=== PATIENT | female | born 1945 | race African-American/Black ===

== ENCOUNTER 2016-08-10 13:42 | Emergency (ER) | payer OTHER ==
[2016-08-10 13:51] VITALS: BP 110/69; TEMP 98.1; BMI 32.3
--- NOTE | 2016-08-10 13:57 | ED.PDOC ---
General ED Provider: Dr. LINDA RAMIREZ JR Chief Complaint: Ankle Pain/Injury Stated Complaint: walking on uneven surface and ankle went over to keep from falling--now has constant pain to lateral aspect rt ankle--unable to bear weight. [ End ]10:30 98.1 78 20 96% 110/69 01/10 Time Seen by Physician: 13:57 Mode of Arrival: Wheelchair Information Source: Patient Exam Limitations: No limitations Nursing and Triage Documentation Reviewed and Agree: No Review of Systems - Review Of Systems Constitutional: Reports: No symptoms Eyes: Reports: No symptoms Ears, Nose, Mouth, Throat: Reports: No symptoms Respiratory: Reports: No symptoms Cardiac: Reports: No symptoms GI: Reports: No symptoms : Reports: No symptoms Musculoskeletal: Reports: Joint pain (right foot right hip(knee nontender )) Skin: Reports: No symptoms Neurological: Reports: No symptoms Endocrine: Reports: No symptoms Hematologic/Lymphatic: Reports: No symptoms All Other Systems: Other Past Medical History - Past Medical History Previously Healthy: No Endocrine: Reports: Hypothyroid, Hyperthyroid, Dyslipidemia Cardiovascular: Reports: CAD, Hypertension Respiratory: Reports: None Hematological: Reports: None Gastrointestinal: Reports: None Genitourinary: Reports: None Neuro/Psych: Reports: TIA, Migraine Musculoskeletal: Reports: Arthritis Cancer: Reports: Breast (right), Other (BLADDER-finished chemo 2017) Last Menstrual Period: hysterectomy - Surgical History General Surgical History: Reports: Hysterectomy, Appendectomy, Orthopedic (arm ) , Back Surgery, Other (thyroidectomy) - Family History Family History: Reports: None - Social History Smoking Status: Current every day smoker, Light tobacco smoker Hx Substance Use: No Alcohol Screening: None Physical Exam - Physical Exam Appearance: Well-appearing Pain Distress: Moderate Eyes: HARI, EOMI, Conjunctiva clear ENT: Ears normal, Nose normal, Oropharynx normal Neck: Supple Respiratory: Airway patent, Breath sounds clear, Breath sounds equal, Respirations nonlabored Cardiovascular: RRR, Pulses normal, No rub, No murmur GI/: Soft, Nontender, No masses, Bowel sounds normal, No Organomegaly Musculoskeletal: Normal strength, ROM intact, No edema, No calf tenderness ( tender righ tfoot an d right hip) Skin: Warm, Dry, Normal color Neurological: Sensation intact, Motor intact, Reflexes intact, Cranial nerves intact, Alert, Oriented Critical Care Note - Critical Care Note Total Time (mins): 0 Course - Course Orders, Labs, Meds: Orders Category Date Time Status ALBER [ED ALBER WRAP] .ONCE EMERGENCY 08/10/16 15:52 Active ED CRUTCHES .ONCE EMERGENCY 08/10/16 15:52 Active FOOT, RIGHT 3 VIEWS Stat RADS 08/10/16 14:02 Completed PELVIS & GEOVANNY HIPS Stat RADS 08/10/16 14:30 Completed Vital Signs: Temp Pulse Resp BP Pulse Ox 08/10/16 13:43 98.1 F 78 20 110/69 96 Departure - Departure Time of Disposition: 15:52 Disposition: HOME SELF-CARE Discharge Problem: Foot sprain, Hip strain Instructions: Foot Sprain (ED), Hip Sprain (ED) Condition: Good Pt referred to PMD for follow-up: Yes Additional Instructions: limit weigh t for three days recheck pmd one week if pain not resolved iced 20 minutes three times a day alber wrap for comfort elevate foot 2 hours twice a day light exercise after 3-6 weeks recheck if pain not resolved Prescriptions: Hydrocodone Bit/Acetaminophen [[place] 5-325] 1 - 2 tab PO Q6HR PRN #12 tablet PRN Reason: pain Allergies/Adverse Reactions: Allergies amoxicillin [From Augmentin] Adverse Reaction (Verified 08/10/16 13:54) clavulanic acid [From Augmentin] Adverse Reaction (Verified 08/10/16 13:54) clindamycin Adverse Reaction (Verified 12/26/14 10:30) Rash doxycycline Adverse Reaction (Verified 08/10/16 13:54) latex Adverse Reaction (Verified 12/26/14 10:30) Rash levofloxacin [From Levaquin] Adverse Reaction (Verified 12/26/14 10:30) [place]-Saurabh Syndrome Penicillins Adverse Reaction (Verified 12/26/14 10:30) Swelling Sulfa (Sulfonamide Antibiotics) Adverse Reaction (Verified 12/26/14 10:30) Rash tetanus immune globulin Adverse Reaction (Verified 12/26/14 10:30) Swelling tetracycline Adverse Reaction (Verified 08/10/16 13:54) Home Medications: Ambulatory Orders Ascorbic Acid [Vitamin C] 500 mg PO DAILY 09/27/12 Calcium Carbonate/Vitamin D3 [Calcium 600 + Vit D 200 Tablet] 1 each PO DAILY Aspirin [Aspirin EC] 81 mg PO DAILYWM 02/10/14 Multivitamin 1 cap PO DAILY 02/10/14 [place]-3S/Dha/Epa/Fish Oil [Fish Oil EC 1,200 mg Softgel] 1 each PO DAILY Levothyroxine Sodium 112 mcg PO DAILY 12/17/15 Promethazine HCl 25 mg PO DIRECTED PRN 06/15/16 Hydrocodone Bit/Acetaminophen [[place] 5-325] 1 - 2 tab PO Q6HR PRN #12 tablet 01/17
--- NOTE | 2016-08-10 14:24 | DI ---
EXAM: Radiographs, right foot HISTORY: Initial presentation for right foot trauma. COMPARISON: None available. TECHNIQUE: Three views. FINDINGS: Bone mineralization is decreased. There is no fracture or dislocation. The joint spaces are maintained. No focal soft tissue abnormality is seen. IMPRESSION: No fracture or dislocation.
--- NOTE | 2016-08-10 15:43 | DI ---
EXAM: Single view of the pelvis and both hips HISTORY: Fall with right hip pain. COMPARISON: CT abdomen pelvis 06/14/2014 FINDINGS: The pelvic ring is intact. The sacroiliac joints and pubic symphysis are normal. There is degenerative change and narrowing with osteophyte formation of the bilateral hip joint spaces. The re is no lytic or blastic lesion. Soft tissues are unremarkable. IMPRESSION: Degenerative disease of the hips with no cortical irregularity or displaced fracture id entified.
== END 2016-08-10 16:14 | disposition home or self-care (01) ==
LOC: ED 13:42
DX: S93.601A Unspecified sprain of right foot, initial encounter (principal); S76.011A Strain of muscle, fascia and tendon of right hip, initial encounter; W01.0XXA Fall on same level from slipping, tripping and stumbling without subsequent striking against object, initial encounter; F17.210 Nicotine dependence, cigarettes, uncomplicated
CPT/HCPCS: 99283

== ENCOUNTER 2016-12-15 10:32 | Outpatient (CLI) ==
[2012-09-27 08:41] VITALS: TEMP 96.8
[2016-12-15 11:09] LABS: BASOPHILS # (AUTO) 0.1 K/uL (0-0.2); BASOPHILS % (AUTO) 0.6 % (0.0-3.0); EOSINOPHILS # (AUTO) 0.1 K/ul (0.0-0.7); EOSINOPHILS % (AUTO) 1.4 % (0.0-7.0); HEMATOCRIT 38.4 % (37.0-47.0); HEMOGLOBIN 13.3 g/dl (12.0-16.0); IMMATURE GRANULOCYTE % (AUTO) 0.4 % (0.0-5.0); LYMPHOCYTES # (AUTO) 3.2 K/uL (0.60-3.4); LYMPHOCYTES % (AUTO) 39.2 (10.0-50.0); MEAN CORPUSCULAR HEMOGLOBIN 33.2 pg (27.0-31.0); MEAN CORPUSCULAR HGB CONC 34.6 (31.8-35.4); MEAN CORPUSCULAR VOLUME 95.8 fl (81.0-99.0); MONOCYTES # (AUTO) 0.6 K/uL (0.4-2.0); MONOCYTES % (AUTO) 7.6 (0-10); NEUTROPHILS # (AUTO) 4.1 K/ul (2.0-6.9); NEUTROPHILS % (AUTO) 50.8; PLATELET COUNT 188 10^3/uL (140-440); RED BLOOD COUNT 4.01 10^6/ul (4.20-5.40); WHITE BLOOD COUNT 8.07 K/ul (4.6-10.2)
[2016-12-15 11:42] LABS: ALBUMIN 3.2 g/dL (3.4-5.0); ANION GAP 12.5; BILIRUBIN,TOTAL 0.25 mg/dL (0.00-1.20); BUN/CREATININE RATIO 17.33; CALCIUM 9.5 mg/dL (8.2-10.2); CREATININE 0.75 mg/dL (0.60-1.30); POTASSIUM 3.5 mmol/L (3.5-5.10); TOTAL PROTEIN 6.4 g/dL (5.8-8.1)
== END 2016-12-15 10:33 | disposition home or self-care (01) ==
LOC: LAB 10:32
PROVIDERS: ATTEND Emergency Medicine
DX: E03.9 Hypothyroidism, unspecified (principal); I10 Essential (primary) hypertension; C67.9 Malignant neoplasm of bladder, unspecified
CPT/HCPCS: 36415; 80053; 83690; 84443; 85025

== ENCOUNTER 2016-12-27 08:54 | Outpatient (CLI) ==
[2012-09-27 08:41] VITALS: TEMP 96.8
== END 2016-12-27 08:55 | disposition home or self-care (01) ==
LOC: CAR 08:54
PROVIDERS: ATTEND Nurse Practitioner Family
DX: Z01.810 Encounter for preprocedural cardiovascular examination (principal)
CPT/HCPCS: 93005; 93010

== ENCOUNTER 2017-01-09 07:14 | Day surgery (SDC) | payer OTHER ==
[2017-01-09] MEDS: KETOROLAC 0.5% OPTH SOL OP PRN ×3 (08:15→08:45)
[2017-01-09] MEDS: TETRACAINE 0.5% UNIT-DOSE OP PRN ×3 (08:15→08:45)
[2017-01-09] MEDS: AK-DILATE 10% OPTH SOL OP PRN ×3 (08:15→08:25)
[2017-01-09] MEDS: CYCLOGYL 2% OPTH OP PRN ×3 (08:15→08:25)
[2017-01-09] MEDS ORDERED: LIDOCAINE 1% 20 ML MDV ID ONE (08:20)
[2017-01-09] MEDS ORDERED: VERSED ONE (09:45)
[2017-01-09] MEDS ORDERED: BETADINE OPTH PREP OP ONE (09:55)
[2017-01-09] MEDS ORDERED: OCUFLOX 0.3% OPTH SOL OP ONE ×2 (10:21)
[2017-01-09] MEDS ORDERED: TIMOPTIC 0.5% OPTH OP ONE ×2 (10:21)
[2017-01-09] MEDS ORDERED: PRED FORTE 1% OPTH SOL OP ONE ×2 (10:21)
[2017-01-09] MEDS ORDERED: VOLTAREN 0.1% OPTH SOL OP ONE ×2 (10:21)
[2017-01-09] MEDS ORDERED: DIAMOX PO ONE (11:33)
[2017-01-09 11:38] VITALS: BP 149/79; TEMP 98
--- NOTE | 2017-01-10 07:12 | OP ---
PREOPERATIVE DIAGNOSIS: LEFT EYE. POSTOPERATIVE DIAGNOSIS: SAME. OPERATION PHACOEMULSIFICATION ASPIRATION OF CATARACT LEFT EYE. PLACEMENT OF POSTERIOR CHAMBER LENS. PHACO TIME 47.9 SECONDS AT 9.0% POWER. LENS MODEL TECLEONID [id number]. DIOPTER +22.0D. TECHNIQUE: CLEAR CORNEA. ANESTHESIA: TOPICAL ANESTHESIA W/ANESTHESIA MONITORING. OPERATIVE REPORT: Topical anesthesia consisting of Tetracaine was applied to the cornea and Xylocaine Methyl Paraben free of MFP was injected intracamerally into the anterior chamber. The patient was then brought into the operating room , prepped and draped in the usual ophthalmic manner. A lid speculum was placed and the operating microscope was used. A paracentesis was made at the 3 o' clock position. A clear corneal incision was made just out to the limbus. The anterior chamber was entered just inside the clear cornea. Viscoelastic was injected into the anterior chamber. A capsulotomy was performed with a bent # 27 gauge needle. Phacoemulsification was then performed in the posterior chamber. After completion of the phacoemulsification, residual cortical material was aspirated with the irrigation-aspiration system. The posterior capsule was polished. Viscoelastic was injected into the anterior and posterior chambers to inflate the capsular bag. Lens were placed via an Unfolder system and stabilized in the bag. Viscoelastic was removed from the anterior chamber. The wound was checked for any leakage. The four sponges were removed from the fornix. Topical antibiotic steroid and nonsteroidal drops were also applied to the cornea. A Jaquez shield was applied. The patient left the operating room in good condition without any complications. INTRAOPERATIVE MEDICATIONS: Xylocaine Methyl Paraben Free MPF MTDD
== END 2017-01-09 11:40 | disposition home or self-care (01) ==
LOC: SURG 07:14
PROVIDERS: ATTEND Ophthalmology
DX: H25.13 Age-related nuclear cataract, bilateral (principal)

== ENCOUNTER 2017-03-13 06:03 | Day surgery (SDC) ==
[2017-03-13] MEDS ORDERED: VOLTAREN 0.1% OPTH SOL OP PRN (06:50)
[2017-03-13] MEDS ORDERED: LIDOCAINE 1% 20 ML MDV ID STA (06:50)
[2017-03-13] MEDS ORDERED: KETOROLAC 0.5% OPTH SOL OP PRN (06:50)
[2017-03-13] MEDS: OCUFEN 0.03% OPTH SOL OP PRN ×3 (07:00→07:30)
[2017-03-13] MEDS: AK-DILATE 10% OPTH SOL OP PRN ×3 (07:00→07:10)
[2017-03-13] MEDS: TETRACAINE 0.5% UNIT-DOSE OP PRN ×3 (07:00→07:30)
[2017-03-13] MEDS: CYCLOGYL 2% OPTH OP PRN ×3 (07:00→07:10)
[2017-03-13] MEDS ORDERED: VERSED ONE (08:10)
[2017-03-13] MEDS: DIAMOX PO STA ×2 (09:00→09:15)
[2017-03-13] MEDS ORDERED: DIAMOX ONE (09:15)
--- NOTE | 2017-03-13 13:14 | OP ---
PREOPERATIVE DIAGNOSIS: CATARACT EXTRACTION RIGHT EYE, NUCLEAR SCLEROTIC/ CORTICAL POSTOPERATIVE DIAGNOSIS: SAME. OPERATION PHACOEMULSIFICATION ASPIRATION OF CATARACT RIGHT EYE. PLACEMENT OF POSTERIOR CHAMBER LENS. PHACO TIME 0:29.1 SECONDS AT 5% POWER. LENS MODEL TECLEONID [id number]. DIOPTER +21.5D. TECHNIQUE: CLEAR CORNEA. ANESTHESIA: TOPICAL ANESTHESIA W/ANESTHESIA MONITORING. OPERATIVE REPORT: Topical anesthesia consisting of Tetracaine was applied to the cornea and Xylocaine Methyl Paraben free of MFP was injected intracamerally into the anterior chamber. The patient was then brought into the operating room , prepped and draped in the usual ophthalmic manner. A lid speculum was placed and the operating microscope was used. A paracentesis was made at the 3 o' clock position. A clear corneal incision was made just out to the limbus. The anterior chamber was entered just inside the clear cornea. Viscoelastic was injected into the anterior chamber. A capsulotomy was performed with a bent # 27 gauge needle. Phacoemulsification was then performed in the posterior chamber. After completion of the phacoemulsification, residual cortical material was aspirated with the irrigation-aspiration system. The posterior capsule was polished. Viscoelastic was injected into the anterior and posterior chambers to inflate the capsular bag. Lens were placed via an Unfolder system and stabilized in the bag. Viscoelastic was removed from the anterior chamber. The wound was checked for any leakage. The four sponges were removed from the fornix. Topical antibiotic steroid and nonsteroidal drops were also applied to the cornea. A Jaquez shield was applied. The patient left the operating room in good condition without any complications. INTRAOPERATIVE MEDICATIONS: Xylocaine Methyl Paraben Free MPF MTDD
[2017-03-13 15:10] VITALS: BP 142/67; TEMP 98.7
== END 2017-03-13 09:30 | disposition home or self-care (01) ==
LOC: SURG 06:03
PROVIDERS: ATTEND Ophthalmology
DX: H25.11 Age-related nuclear cataract, right eye (principal); Z96.1 Presence of intraocular lens

== ENCOUNTER 2017-06-05 11:15 | Outpatient (CLI) ==
[2017-06-05 11:37] VITALS: BP 153/89; TEMP 97.5
[2017-06-05] MEDS ORDERED: HEPARIN 500 UNIT/5 ML (PORT ACCESS TRAY ONLY) IVF ONE (13:55)
== END 2017-06-05 11:16 | disposition home or self-care (01) ==
LOC: OPMED 11:15
PROVIDERS: ATTEND Specialist
DX: Z45.2 Encounter for adjustment and management of vascular access device (principal); C67.8 Malignant neoplasm of overlapping sites of bladder
CPT/HCPCS: 96523

== ENCOUNTER 2017-06-29 11:11 | Outpatient (CLI) | payer OTHER ==
[2012-09-27 08:41] VITALS: TEMP 96.8
== END 2017-06-29 11:12 | disposition home or self-care (01) ==
LOC: RHC-LAB 11:11
PROVIDERS: ATTEND Nurse Practitioner Family
DX: R35.0 Frequency of micturition (principal); R74.8 Abnormal levels of other serum enzymes; I10 Essential (primary) hypertension; E78.5 Hyperlipidemia, unspecified; E03.9 Hypothyroidism, unspecified; R73.9 Hyperglycemia, unspecified
CPT/HCPCS: 36415; 80053; 80061; 81001; 82607; 83036; 84443; 85025; 87086

== ENCOUNTER 2017-07-10 08:22 | Outpatient (CLI) | payer OTHER ==
[2017-07-10 08:47] VITALS: BP 142/68; TEMP 98.6
[2017-07-10] MEDS ORDERED: HEPARIN 500 UNIT/5 ML (PORT ACCESS TRAY ONLY) IVF ONE (08:48)
[2017-07-10] MEDS ORDERED: SALINE FLUSH (PORT ACCESS TRAY USE ONLY) IVF ONE (08:49)
== END 2017-07-10 08:23 | disposition home or self-care (01) ==
LOC: OUTPT 08:22
PROVIDERS: ATTEND Specialist
DX: R35.0 Frequency of micturition (principal); R74.8 Abnormal levels of other serum enzymes; I10 Essential (primary) hypertension; E78.5 Hyperlipidemia, unspecified; R73.9 Hyperglycemia, unspecified
CPT/HCPCS: 96523

== ENCOUNTER 2017-08-08 13:02 | Outpatient (CLI) ==
[2017-08-08 13:15] VITALS: BP 129/63; TEMP 97.3
[2017-08-08] MEDS ORDERED: SALINE FLUSH (PORT ACCESS TRAY USE ONLY) IVF ONE (13:19)
[2017-08-08] MEDS ORDERED: HEPARIN 500 UNIT/5 ML (PORT ACCESS TRAY ONLY) IVF ONE (13:19)
== END 2017-08-08 13:03 | disposition home or self-care (01) ==
LOC: OPMED 13:02
PROVIDERS: ATTEND Specialist
DX: Z45.2 Encounter for adjustment and management of vascular access device (principal); C67.8 Malignant neoplasm of overlapping sites of bladder
CPT/HCPCS: 96523

== ENCOUNTER 2017-09-11 09:02 | Outpatient (CLI) ==
[2017-09-11] MEDS ORDERED: SALINE FLUSH (PORT ACCESS TRAY USE ONLY) IVF ONE (09:16)
[2017-09-11] MEDS ORDERED: HEPARIN 500 UNIT/5 ML (PORT ACCESS TRAY ONLY) IVF ONE (09:16)
[2017-09-11 10:20] VITALS: BP 146/78; TEMP 97.6
== END 2017-09-11 09:35 | disposition home or self-care (01) ==
LOC: OPMED 09:02
PROVIDERS: ATTEND Urology
DX: Z45.2 Encounter for adjustment and management of vascular access device (principal); C67.8 Malignant neoplasm of overlapping sites of bladder
CPT/HCPCS: 96523

== ENCOUNTER 2017-10-12 10:39 | Outpatient (CLI) | payer OTHER ==
[2017-10-12 10:55] VITALS: BP 157/87; TEMP 98.6
[2017-10-12] MEDS ORDERED: HEPARIN 500 UNIT/5 ML (PORT ACCESS TRAY ONLY) IVF ONE (10:56)
[2017-10-12] MEDS ORDERED: SALINE FLUSH (PORT ACCESS TRAY USE ONLY) IVF ONE (10:56)
== END 2017-10-12 10:40 | disposition home or self-care (01) ==
LOC: OPMED 10:39
PROVIDERS: ATTEND Urology
DX: Z45.2 Encounter for adjustment and management of vascular access device (principal); C67.8 Malignant neoplasm of overlapping sites of bladder
CPT/HCPCS: 96523

== ENCOUNTER 2017-11-15 10:34 | Outpatient (CLI) ==
[2017-11-15] MEDS ORDERED: SALINE FLUSH (PORT ACCESS TRAY USE ONLY) IVF ONE (10:43)
[2017-11-15] MEDS ORDERED: HEPARIN 500 UNIT/5 ML (PORT ACCESS TRAY ONLY) IVF ONE (10:43)
[2017-11-15 11:04] VITALS: BP 148/87; TEMP 98.6
== END 2017-11-15 10:35 | disposition home or self-care (01) ==
LOC: OPMED 10:34
PROVIDERS: ATTEND Specialist
DX: Z45.2 Encounter for adjustment and management of vascular access device (principal); C67.8 Malignant neoplasm of overlapping sites of bladder
CPT/HCPCS: 96523

== ENCOUNTER 2017-12-20 09:36 | Outpatient (CLI) ==
[2012-09-27 08:41] VITALS: TEMP 96.8
== END 2017-12-20 09:37 | disposition home or self-care (01) ==
LOC: OPMED 09:36
PROVIDERS: ATTEND Specialist
DX: E78.5 Hyperlipidemia, unspecified (principal); I10 Essential (primary) hypertension; E03.9 Hypothyroidism, unspecified; Z45.2 Encounter for adjustment and management of vascular access device; C67.8 Malignant neoplasm of overlapping sites of bladder
CPT/HCPCS: 36591; 80053; 80061; 84443; 85025

== ENCOUNTER 2017-12-28 11:26 | Outpatient (CLI) | payer OTHER ==
[2012-09-27 08:41] VITALS: TEMP 96.8
--- NOTE | 2017-12-28 12:18 | DI ---
EXAM: Three views of the right fingers. History: Pain and swelling of the PIP joint of the third digit. Findings: No acute fracture or dislocation. No abnormal calcifications or radiopaque foreign bodies . Joint spaces are relatively preserved. Focal soft tissue swelling involving the PIP joint of the third digit. No cortical destruction or periostitis identified to suggest osteomyelitis. Impression: 1. No acute osseous abnormality. 2. Focal soft tissue swelling involving the PIP joint of the third digit.
== END 2017-12-28 11:27 | disposition home or self-care (01) ==
LOC: LAB 11:26
PROVIDERS: ATTEND Nurse Practitioner Family
DX: M79.89 Other specified soft tissue disorders (principal); M79.644 Pain in right finger(s)
CPT/HCPCS: 36415; 84550

== ENCOUNTER 2018-01-20 09:35 | Outpatient (CLI) | payer OTHER ==
[2018-01-20] MEDS ORDERED: HEPARIN 500 UNIT/5 ML (PORT ACCESS TRAY ONLY) IVF ONE (09:46)
[2018-01-20 10:41] VITALS: BP 132/74; TEMP 97.8
== END 2018-01-20 09:36 | disposition home or self-care (01) ==
LOC: OPMED 09:35
PROVIDERS: ATTEND Specialist
DX: Z45.2 Encounter for adjustment and management of vascular access device (principal); C67.8 Malignant neoplasm of overlapping sites of bladder
CPT/HCPCS: 96523

== ENCOUNTER 2018-04-11 08:26 | Outpatient (CLI) | payer OTHER ==
[2018-04-11] MEDS: HEPARIN 500 UNIT/5 ML (PORT ACCESS TRAY ONLY) IVF ONE (09:20)
[2018-04-11] MEDS: SALINE FLUSH (PORT ACCESS TRAY USE ONLY) IVF ONE (09:20)
[2018-04-11 12:59] VITALS: BP 156/87; TEMP 97.6
== END 2018-04-11 08:27 | disposition home or self-care (01) ==
LOC: OPMED 08:26
PROVIDERS: ATTEND Specialist
DX: Z45.2 Encounter for adjustment and management of vascular access device (principal); C67.8 Malignant neoplasm of overlapping sites of bladder
CPT/HCPCS: 96523

== ENCOUNTER 2018-04-24 08:14 | Outpatient (CLI) ==
[2012-09-27 08:41] VITALS: TEMP 96.8
== END 2018-04-24 08:15 | disposition home or self-care (01) ==
LOC: LAB 08:14
PROVIDERS: ATTEND Nurse Practitioner Family
DX: I10 Essential (primary) hypertension (principal); E03.9 Hypothyroidism, unspecified; E78.00 Pure hypercholesterolemia, unspecified; E78.5 Hyperlipidemia, unspecified
CPT/HCPCS: 36415; 80053; 80061; 84443; 85025

== ENCOUNTER 2018-11-29 08:41 | Outpatient (CLI) | payer OTHER ==
[2018-11-29] MEDS: SALINE FLUSH (PORT ACCESS TRAY USE ONLY) IVF ONE (09:04)
[2018-11-29] MEDS: HEPARIN 500 UNIT/5 ML (PORT ACCESS TRAY ONLY) IVF ONE (09:05)
[2018-11-29 09:13] VITALS: BP 134/82; TEMP 97.4
== END 2018-11-29 08:42 | disposition home or self-care (01) ==
LOC: OPMED 08:41
PROVIDERS: ATTEND Specialist
DX: Z45.2 Encounter for adjustment and management of vascular access device (principal); C67.8 Malignant neoplasm of overlapping sites of bladder
CPT/HCPCS: 96523